=== PATIENT | female | born 1990 | race American Indian/Alaskan Native ===

== ENCOUNTER 2016-10-15 22:58 | Outpatient (CLI) | payer SELFPAY ==
[2016-10-15 23:16] VITALS: BP 131/70
[2016-10-15] MEDS ORDERED: LACTATED RINGERS 500 ML IV ONE (23:34)
== END 2016-10-15 23:45 | disposition home or self-care (01) ==
LOC: TRG 22:58
PROVIDERS: ATTEND Obstetrics & Gynecology
DX: O47.03 False labor before 37 completed weeks of gestation, third trimester (principal); Z3A.36 36 weeks gestation of pregnancy
CPT/HCPCS: 59025; J7120

== ENCOUNTER 2016-10-24 15:46 | Outpatient (CLI) | payer MEDICAID ==
[2016-10-24 16:53] VITALS: BP 127/79
--- NOTE | 2016-10-25 08:21 | Ultrasound Report ---
OB LIMITED INDICATION: Loss of fluid. Evaluate for rupture of membranes. COMPARISON: 03/07/2016 TECHNIQUE: Transabdominal grayscale ultrasound with Doppler interrogation. Gestation: [place] Position: Cephalic Amniotic Fluid: WNL (7-24 cm) SATISH = 12.9 cm Placenta: Right lateral Placental Grade: I Heart Rate: 158 BPM
== END 2016-10-24 19:30 | disposition home or self-care (01) ==
LOC: TRG 15:46
PROVIDERS: ATTEND Obstetrics & Gynecology
DX: O42.92 Full-term premature rupture of membranes, unspecified as to length of time between rupture and onset of labor (principal); Z3A.37 37 weeks gestation of pregnancy
CPT/HCPCS: 59025; 76815

== ENCOUNTER 2016-10-25 23:28 | Inpatient (IN) | payer MEDICAID ==
--- NOTE | 2016-10-26 01:46 | History and Physical Report ---
History of Present Illness Date of examination: 10/26/16 History of present illness: Patient presents to triage with c/o leaking fluid. RN report initailly no gross ROM seen. Ultrasound revealed an SATISH of 7cm different from previuos SATISH 0t 12 cm on 10/24 and RN report wet chux on bed. Patient admitted for SROM Menstrual History LMP: 02/03/2016 EDC Calculations LMP: 11/09/2016 EDC Confirmation: 11/09/2016 Past History : 4 Term Births: 1 Living Children: 1 Para: 1 Elect. Ab: 1 Spont. Ab: 1 # 1 Delivery date: 09/08/2010 Weeks Gestation: 39 Delivery type: Anesthesia type: epidural Delivery location: [facility] Sex: Female weight: 5-3 # 2 Delivery date: 05/08/2011 Delivery type: EAB # 3 Delivery date: 09/08/2015 Delivery type: SAB Past Medical History: Negative Past Medical History HPV Past Surgical History: negative Past Medical History Anesthesia Complications: negative Anemia: negative Autoimmune Disorder: negative Bleeding Disorder: negative Blood Transfusions: negative Breast Disease: negative Diabetes: negative Heart Disease: negative Hypertension: negative Hepatitis/Liver Disease: negative Kidney Disease/UTI: negative Neurologic/Epilepsy/Migraines: negative Phlebitis/Varicosities: negative Psychiatric: negative Pulmonary Disease/Asthma: negative Thyroid Disease: negative Hospitalizations: negative Surgery (Non-scalper operator): negative Abnormal PAP: positive Uterine Surgery (not C/S): negative Infection History Hx of STD: chlamydia HIV Risk Eval: low risk Hepatitis B Risk Eval: low risk Personal hx. of genital herpes: no Varicella/Chicken Pox Status: Previous Disease TB Risk: no Genetic History Congenital Heart Defect: Mom: no Dad: no Awa Disease: Mom: no Dad: no Thalassemia Mom: no Dad: no Neural Tube Defect Mom: no Dad: no Down's Syndrome Mom: no Dad: no Eladio-Sachs Mom: no Dad: no Sickle Cell Disease/Trait Mom: no Dad: no Hemophilia Mom: no Dad: no Muscular Dystrophy Mom: no Dad: no Cystic Fibrosis Mom: no Dad: no Rebecca Chorea Mom: no Dad: no Mental Retardation Mom: no Dad: no Fragile X Mom: no Dad: no Other Genetic/Chromosomal Disorder Mom: no Dad: no Child w/other defect Mom: no Dad: no Enviromental Exposures Xray Exposure: no Medication, drug, or alcohol use since LMP: no Chemical/Other Exposure: no Exposure to Cat Liter: no Current Allergies (reviewed today): No known allergies Past History Past Medical History: other (See HPI) Past Surgical History: other (See HPI) GENERAL NEUROLOGIST History: other (See HPI) Family/Genetic History: other (See HPI) Social history: other (See HPI) - Obstetrical History Expected Date of Delivery: 11/09/16 Actual Gestation: 38 Week(s) 1 Day(s) : 4 Para: 1 Hx # Term Pregnancies: 1 Number of Pregnancies: 0 Spontaneous Abortions: 0 Induced : 2 Number of Living Children: 1 Medications and Allergies Allergies Allergy/AdvReac Type Severity Reaction Status Date / Time No Known Allergies Allergy Verified 03/07/16 00:40 Home Medications Medication Instructions Recorded Confirmed Last Taken Type Doxylamine/Pyridoxine HCl 1 each PO Q6HR PRN #30 tablet. 03/07/16 Unknown Rx [Blake Gavin 10-10 mg Tablet] Vit W-Ca,Fe,FA(<1 mg) 1 each PO QDAY #30 tablet 03/07/16 Unknown Rx [ Vitamins] Ibuprofen [Motrin 800 MG tab] 800 mg PO Q8HR PRN #30 tablet 10/27/16 Unknown Rx Lidocain2.5%/Prilocai2.5% [Emla] 5 gm TP ONCE PRN #1 tube 10/27/16 Unknown Rx Review of Systems Constitutional: other (See HPI) - Vital Signs Vital signs: Vital Signs Pulse BP 84 146/82 10/25/16 23:44 10/25/16 23:44 Temp Pulse Resp BP Pulse Ox 98.9 F 84 18 137/83 10/25/16 23:48 10/25/16 23:57 10/25/16 23:48 10/25/16 23:57 - Physical Exam Breasts: Positive: deferred Cardiovascular: Regular rate Lungs: Positive: Normal air movement Cervix: Positive: other (per RN) Results Result Diagrams: 10/27/16 06:47 All other labs normal. Assessment and Plan - Patient Problems (1) Premature rupture of membranes Onset Date: ~10/26/16 Current Visit: Yes Status: Acute Qualifiers: PROM onset of labor timing: P PROM gestational age: full term Plan to address problem: Will admit/see orders/labor protocol/augment if necessary (2) 38 weeks gestation of Current Visit: Yes Status: Acute (3) Group B streptococcal carriage complicating Current Visit: Yes Status: Acute Plan to address problem: Will give prophlaxis
[2016-10-26] MEDS ORDERED: STADOL IV PRN (01:53)
[2016-10-26] MEDS ORDERED: BRETHINE IVP PRN (01:53)
[2016-10-26] MEDS ORDERED: ePHEDrine SULFATE IV PRN ×2 (01:53→13:29)
[2016-10-26] MEDS ORDERED: MINERAL OIL PO PRN (01:53)
[2016-10-26] MEDS ORDERED: BRETHINE SUB-Q PRN (01:53)
[2016-10-26] MEDS ORDERED: XYLOCAINE 2% INFILTRATI ONE (01:53)
[2016-10-26] MEDS ORDERED: PHENERGAN PO PRN (01:53)
[2016-10-26] MEDS ORDERED: PITOCin/NS 20 UNIT/1000ML DRIP 20 UNITS/1,000 ML BAG IV SCH (02:00)
[2016-10-26 02:37] LABS: Hematocrit 37.4 % (30.3-42.9); Hemoglobin 12.3 gm/dl (10.1-14.3); Mean Corpuscular HGB Conc 33 % (30-34); Mean Corpuscular Hemoglobin 30 pg (28-32); Mean Corpuscular Volume 91 fl (79-97); Platelet Count 309 K/mm3 (140-440); Red Cell Distribution Width 13.2 % (13.2-15.2); White Blood Count 11.4 K/mm3 (4.5-11.0)
[2016-10-26] MEDS: LACTATED RINGERS 1,000 ML IV SCH ×3 (03:44→11:58)
[2016-10-26] MEDS ORDERED: POLYCILLIN/NS 2 GM/100 ML 2 GM/100 ML BAG IV ONE (04:39)
[2016-10-26] MEDS: PITOCin/NS 30 UNIT/500ML 30 UNITS/500 ML BAG IV SCH ×4 (04:56→13:04)
--- NOTE | 2016-10-26 06:21 | Progress Note ---
Assessment and Plan Pt states ctx are tolerable Gross rupture noted @ 0600 SVE 1,30,-2 ISE/IUPC placed. Pit @ 12 mu Epidural when pt requests. Re-eval as needed. Subjective - Subjective Date of service: 10/26/16 (pt resting quietly) Patient reports: loss of fluid (pt states more fluid is coming out; large amt fluid clear noted on pad), movement normal Objective - Vital Signs Vital Signs: Vital Signs - 12hr 10/25/16 10/25/16 10/25/16 23:44 23:48 23:57 Temperature 98.9 F Pulse Rate 84 84 Pulse Rate [ From Monitor] Respiratory 18 Rate Blood Pressure 146/82 137/83 Blood Pressure [Left Arm] O2 Sat by Pulse Oximetry 10/26/16 10/26/16 10/26/16 02:28 02:41 02:45 Temperature 98.2 F Pulse Rate 81 82 Pulse Rate [ 88 From Monitor] Respiratory 20 Rate Blood Pressure 133/78 Blood Pressure 133/78 [Left Arm] O2 Sat by Pulse 97 97 Oximetry 10/26/16 10/26/16 10/26/16 02:50 02:55 03:00 Temperature Pulse Rate 90 77 81 Pulse Rate [ From Monitor] Respiratory Rate Blood Pressure Blood Pressure [Left Arm] O2 Sat by Pulse 97 97 96 Oximetry 10/26/16 10/26/16 10/26/16 03:05 03:10 03:15 Temperature Pulse Rate 84 83 83 Pulse Rate [ From Monitor] Respiratory Rate Blood Pressure Blood Pressure [Left Arm] O2 Sat by Pulse 97 97 96 Oximetry 10/26/16 10/26/16 10/26/16 03:20 03:25 03:30 Temperature Pulse Rate 83 85 85 Pulse Rate [ From Monitor] Respiratory Rate Blood Pressure Blood Pressure [Left Arm] O2 Sat by Pulse 96 97 97 Oximetry 10/26/16 10/26/16 10/26/16 03:35 04:53 06:04 Temperature Pulse Rate 91 H 78 98 H Pulse Rate [ From Monitor] Respiratory Rate Blood Pressure 135/76 141/71 Blood Pressure [Left Arm] O2 Sat by Pulse 97 Oximetry - Exam Breasts: deferred Cardiovascular: Regular rate Lungs: Normal air movement Abdomen: Present: normal appearance, soft. Absent: distention, tenderness Uterus: Present: normal FHR: auscultation normal, category 1 Uterine Contraction Monitor Mode: Internal Cervical Dilatation: 1 (ISE/IUPC placed) Cervical Effacement Percentage: 30 station: -2 Uterine Contraction Frequency (min): q2-3 Uterine Contraction Duration: 45 Uterine Contraction Pattern: Regular Uterine Tone Measurement Phase: Resting Uterine Contraction Intensity: Mild Extremities: edema (bilateral LE) Deep Tendon Reflex Grade: Normal +2 - Labs Labs: Abnormal Labs 10/26/16 02:16 WBC 11.4 H Laboratory Results - last 24 hr 10/26/16 10/26/16 02:16 02:16 WBC 11.4 H RBC 4.10 Hgb 12.3 Hct 37.4 MCV 91 MCH 30 MCHC 33 RDW 13.2 Plt Count 309 Blood Type B POSITIVE Antibody Screen Negative
[2016-10-26] MEDS ORDERED: SUBLIMAZE IV PRN (08:09)
[2016-10-26] MEDS: POLYCILLIN/NS 1 GM/50 ML 1 GM/50 ML BAG IV SCH ×2 (08:51→13:00)
[2016-10-26] MEDS ORDERED: ePHEDrine SULFATE ONE (11:21)
[2016-10-26] MEDS ORDERED: fentaNYL-BUPIV 2 MCG/ML-0.125% 200 MCG/100 ML BAG EPIDURAL ONE (11:50)
--- NOTE | 2016-10-26 11:59 | Anesthesia Consultation ---
Anesthesia Consult and Med Hx Date of service: 10/26/16 - Airway Anesthetic Teeth Evaluation: Good ROM Head & Neck: Adequate Mental/Hyoid Distance: Adequate Mallampati Class: Class II Intubation Access Assessment: Probably Good - Pulmonary Exam CTA: Yes - Cardiac Exam Cardiac Exam: RRR - Pre-Operative Health Status ASA Pre-Surgery Classification: ASA2 Proposed Anesthetic Plan: Epidural, Spinal - Pulmonary Hx Asthma: No COPD: No Hx Pneumonia: No - Cardiovascular System Hx Hypertension: No - Central Nervous System Hx Seizures: No Hx Psychiatric Problems: No - Endocrine Hx Renal Disease: No Hx End Stage Renal Disease: No Hx Hypothyroidism: No Hx Hyperthyroidism: No - Hematic Hx Anemia: No Hx Sickle Cell Disease: No - Other Systems Hx Alcohol Use: No - Additional Comments Anesthesia Medical History Comments: +
--- NOTE | 2016-10-26 12:17 | Progress Note ---
Assessment and Plan - Patient Problems (1) Premature rupture of membranes Onset Date: ~10/26/16 Current Visit: Yes Status: Acute Qualifiers: PROM onset of labor timing: P PROM gestational age: full term Plan to address problem: pt req epidural Bolus complete Pit 22mu SVE 4,70,-1 called Re-eval as needed Subjective - Subjective Date of service: 10/26/16 (pt sitting up for epidural; had not been examined) Patient reports: loss of fluid (pt states more fluid is coming out; large amt fluid clear noted on pad), movement normal Objective - Vital Signs Vital Signs: Vital Signs - 12hr 10/26/16 10/26/16 10/26/16 02:28 02:41 02:45 Temperature 98.2 F Pulse Rate 81 82 Pulse Rate [ 88 From Monitor] Respiratory 20 Rate Blood Pressure 133/78 Blood Pressure 133/78 [Left Arm] O2 Sat by Pulse 97 97 Oximetry 10/26/16 10/26/16 10/26/16 02:50 02:55 03:00 Temperature Pulse Rate 90 77 81 Pulse Rate [ From Monitor] Respiratory Rate Blood Pressure Blood Pressure [Left Arm] O2 Sat by Pulse 97 97 96 Oximetry 10/26/16 10/26/16 10/26/16 03:05 03:10 03:15 Temperature Pulse Rate 84 83 83 Pulse Rate [ From Monitor] Respiratory Rate Blood Pressure Blood Pressure [Left Arm] O2 Sat by Pulse 97 97 96 Oximetry 10/26/16 10/26/16 10/26/16 03:20 03:25 03:30 Temperature Pulse Rate 83 85 85 Pulse Rate [ From Monitor] Respiratory Rate Blood Pressure Blood Pressure [Left Arm] O2 Sat by Pulse 96 97 97 Oximetry 10/26/16 10/26/16 10/26/16 03:35 04:53 06:04 Temperature Pulse Rate 91 H 78 98 H Pulse Rate [ From Monitor] Respiratory Rate Blood Pressure 135/76 141/71 Blood Pressure [Left Arm] O2 Sat by Pulse 97 Oximetry 10/26/16 10/26/16 10/26/16 07:19 07:35 07:45 Temperature Pulse Rate 85 86 75 Pulse Rate [ From Monitor] Respiratory Rate Blood Pressure 127/78 126/84 131/74 Blood Pressure [Left Arm] O2 Sat by Pulse Oximetry 10/26/16 10/26/16 10/26/16 08:15 08:32 08:45 Temperature Pulse Rate 72 75 85 Pulse Rate [ From Monitor] Respiratory Rate Blood Pressure 140/72 141/63 128/62 Blood Pressure [Left Arm] O2 Sat by Pulse Oximetry 10/26/16 10/26/16 10/26/16 09:01 09:15 09:31 Temperature Pulse Rate 80 81 75 Pulse Rate [ From Monitor] Respiratory Rate Blood Pressure 117/63 114/60 125/64 Blood Pressure [Left Arm] O2 Sat by Pulse Oximetry 10/26/16 10/26/16 10/26/16 09:35 09:40 09:45 Temperature Pulse Rate 75 81 73 Pulse Rate [ From Monitor] Respiratory Rate Blood Pressure 135/73 Blood Pressure [Left Arm] O2 Sat by Pulse 97 96 96 Oximetry 10/26/16 10/26/16 10/26/16 09:50 09:52 09:55 Temperature Pulse Rate 81 80 74 Pulse Rate [ From Monitor] Respiratory Rate Blood Pressure 134/84 Blood Pressure [Left Arm] O2 Sat by Pulse 98 97 Oximetry 10/26/16 10/26/16 10/26/16 09:59 10:00 10:05 Temperature 97.5 F L Pulse Rate 71 72 84 Pulse Rate [ 79 From Monitor] Respiratory 16 Rate Blood Pressure 141/85 135/78 Blood Pressure 135/78 [Left Arm] O2 Sat by Pulse 98 98 Oximetry 10/26/16 10/26/16 10/26/16 10:06 10:08 10:10 Temperature Pulse Rate 77 83 77 Pulse Rate [ From Monitor] Respiratory Rate Blood Pressure 115/66 Blood Pressure [Left Arm] O2 Sat by Pulse 93 92 Oximetry 10/26/16 10/26/16 10/26/16 10:15 10:20 10:21 Temperature Pulse Rate 77 83 78 Pulse Rate [ From Monitor] Respiratory Rate Blood Pressure 119/72 Blood Pressure [Left Arm] O2 Sat by Pulse 96 98 Oximetry 10/26/16 10/26/16 10/26/16 10:25 10:30 10:34 Temperature Pulse Rate 74 82 79 Pulse Rate [ From Monitor] Respiratory Rate Blood Pressure Blood Pressure [Left Arm] O2 Sat by Pulse 98 97 94 Oximetry 10/26/16 10/26/16 10/26/16 10:35 10:37 10:40 Temperature Pulse Rate 83 81 84 Pulse Rate [ From Monitor] Respiratory Rate Blood Pressure 109/55 Blood Pressure [Left Arm] O2 Sat by Pulse 96 95 Oximetry 10/26/16 10/26/16 10/26/16 10:45 10:50 10:51 Temperature Pulse Rate 95 H 91 H 82 Pulse Rate [ From Monitor] Respiratory Rate Blood Pressure 110/58 Blood Pressure [Left Arm] O2 Sat by Pulse 95 95 Oximetry 10/26/16 10/26/16 10/26/16 10:55 11:00 11:05 Temperature Pulse Rate 87 85 86 Pulse Rate [ From Monitor] Respiratory Rate Blood Pressure 109/59 Blood Pressure [Left Arm] O2 Sat by Pulse 95 95 94 Oximetry 10/26/16 10/26/16 10/26/16 11:06 11:10 11:15 Temperature Pulse Rate 85 86 98 H Pulse Rate [ From Monitor] Respiratory Rate Blood Pressure Blood Pressure [Left Arm] O2 Sat by Pulse 94 95 97 Oximetry 10/26/16 10/26/16 10/26/16 11:16 11:20 11:21 Temperature Pulse Rate 96 H 97 H 88 Pulse Rate [ From Monitor] Respiratory Rate Blood Pressure 115/55 Blood Pressure [Left Arm] O2 Sat by Pulse 94 97 Oximetry 10/26/16 10/26/16 10/26/16 11:25 11:30 11:35 Temperature Pulse Rate 98 H 96 H 87 Pulse Rate [ From Monitor] Respiratory Rate Blood Pressure 119/56 Blood Pressure [Left Arm] O2 Sat by Pulse 97 96 96 Oximetry - Exam Breasts: deferred Cardiovascular: Regular rate Lungs: Normal air movement Abdomen: Present: normal appearance, soft. Absent: distention, tenderness Uterus: Present: normal FHR: auscultation normal, category 1 Uterine Contraction Monitor Mode: Internal Cervical Dilatation: 4 Cervical Effacement Percentage: 70 station: -1 Uterine Contraction Pattern: Regular Uterine Contraction Intensity: Moderate Extremities: normal Deep Tendon Reflex Grade: Normal +2 - Labs Labs: Abnormal Labs 10/26/16 02:16 WBC 11.4 H Laboratory Results - last 24 hr 10/26/16 10/26/16 02:16 02:16 WBC 11.4 H RBC 4.10 Hgb 12.3 Hct 37.4 MCV 91 MCH 30 MCHC 33 RDW 13.2 Plt Count 309 Blood Type B POSITIVE Antibody Screen Negative
[2016-10-26] MEDS ORDERED: NARCAN 2 MG/2 ML IV PRN (13:29)
[2016-10-26] MEDS ORDERED: fentaNYL-BUPIV 2 MCG/ML-0.125% 200 MCG/100 ML BAG EPIDURAL SCH (14:00)
[2016-10-26] MEDS ORDERED: TUCKS PAD TP PRN (15:02)
[2016-10-26] MEDS ORDERED: DERMOPLAST TP PRN (15:02)
[2016-10-26] MEDS ORDERED: ZOFRAN IV PRN (15:02)
[2016-10-26] MEDS ORDERED: TYLENOL PO PRN (15:02)
[2016-10-26] MEDS ORDERED: DULCOLAX PR PRN (15:02)
[2016-10-26] MEDS ORDERED: BENADRYL PO PRN (15:02)
[2016-10-26] MEDS ORDERED: LANSINOH TP PRN (15:02)
[2016-10-26] MEDS ORDERED: MILK OF MAGNESIA PO PRN (15:02)
[2016-10-26] MEDS ORDERED: NORCO 5/325 PO PRN (15:02)
--- NOTE | 2016-10-26 15:09 | Procedure Note ---
OB Delivery Note - Delivery Date of Delivery: 10/26/16 Director Of Exhibit Development: DAPHNEY QUINTANA Estimated blood loss: 300cc - Vaginal Delivery presentation: vertex Delivery position: OA Intrapartum events: none Delivery induction: none Delivery augmentation: pitocin Delivery monitor: internal FHT, internal uterine Route of delivery: Delivery placenta: spontaneous Delivery cord: nuchal cord, 3 umbilical vessels Episiotomy: none Delivery laceration: none Anesthesia: epidural Delivery comments: live born male over intact perineum CAN X 1 reduced. Baby to mom's abdomen skin to skin Cord blood obt Placenta and membrane del complete and intact, 3 vessel cord. Pit IVFs. 8/9, EBL 300, Wgt 5-10 Mom and baby remain LDR stable - Infant A at 1 minute: 8 at 5 minutes: 9 Infant Gender: Male (wgt 5-10)
[2016-10-26] MEDS ORDERED: SODIUM CHLORIDE FLUSH SYRINGE 10 ML IV SCH (16:00)
[2016-10-26] MEDS: MOTRIN PO SCH (17:40)
[2016-10-27] MEDS: MOTRIN PO SCH ×3 (05:38→14:02)
[2016-10-27] MEDS ORDERED: BOOSTRIX IM ONE (06:00)
[2016-10-27 07:49] LABS: Hematocrit 35.5 % (30.3-42.9); Hemoglobin 11.7 gm/dl (10.1-14.3)
--- NOTE | 2016-10-27 08:25 | Progress Note ---
Assessment and Plan Patient resting w/o complaints. lochia scant, VSSAF, H&H stable 11.7/35.5. Patient desires d/c home today. Plan for d/c once is cleared for discharge. - Patient Problems (1) Spontaneous vaginal delivery Current Visit: Yes Status: Acute Subjective - Subjective Date of service: 10/27/16 Principal diagnosis: day #1 s/p Patient reports: appetite normal, voiding normally, pain well controlled, ambulating normally, no dizzy ambulation, no nauseated [place]: doing well, nursing well Objective - Vital Signs Latest vital signs: Vital Signs Temp Pulse Pulse Pulse Resp BP BP 10/27/16 00:00 98.6 F 88 22 132/79 10/26/16 16:30 98.7 F 87 18 135/75 10/26/16 14:34 121 H 10/26/16 14:32 95 H 147/84 10/26/16 14:29 102 H 10/26/16 14:24 89 10/26/16 14:19 99 H 10/26/16 14:17 82 119/74 10/26/16 14:14 98 H 10/26/16 14:09 79 10/26/16 14:04 92 H 10/26/16 14:02 84 130/83 10/26/16 13:59 91 H 10/26/16 13:54 89 10/26/16 13:49 88 10/26/16 13:48 87 10/26/16 13:46 83 124/80 10/26/16 13:44 77 10/26/16 13:39 73 10/26/16 13:34 87 10/26/16 13:31 76 127/74 10/26/16 13:29 85 10/26/16 13:24 86 10/26/16 13:19 93 H 10/26/16 13:17 89 133/80 10/26/16 13:14 91 H 10/26/16 13:09 83 10/26/16 13:04 94 H 10/26/16 13:03 80 129/76 10/26/16 13:01 76 127/78 10/26/16 12:59 81 10/26/16 12:54 82 16 122/77 10/26/16 12:49 79 10/26/16 12:46 86 122/77 10/26/16 12:44 84 120/76 10/26/16 12:42 132/72 10/26/16 12:40 98 H 125/73 10/26/16 12:39 89 10/26/16 12:38 83 118/66 10/26/16 12:36 81 125/64 10/26/16 12:34 95 H 119/62 10/26/16 12:32 81 124/66 10/26/16 12:30 108 H 126/67 10/26/16 12:29 93 H 10/26/16 12:28 85 129/72 10/26/16 12:26 83 128/73 10/26/16 12:24 79 135/66 10/26/16 12:22 100 H 121/68 10/26/16 12:19 103 H 126/74 10/26/16 12:14 81 129/74 10/26/16 11:35 87 119/56 10/26/16 11:30 96 H 10/26/16 11:25 98 H 10/26/16 11:21 88 115/55 10/26/16 11:20 97 H 10/26/16 11:16 96 H 10/26/16 11:15 98 H 10/26/16 11:10 86 10/26/16 11:06 85 10/26/16 11:05 86 109/59 10/26/16 11:00 85 10/26/16 10:55 87 10/26/16 10:51 82 110/58 10/26/16 10:50 91 H 10/26/16 10:45 95 H 10/26/16 10:40 84 10/26/16 10:37 81 109/55 10/26/16 10:35 83 10/26/16 10:34 79 10/26/16 10:30 82 10/26/16 10:25 74 10/26/16 10:21 78 119/72 10/26/16 10:20 83 10/26/16 10:15 77 10/26/16 10:10 77 10/26/16 10:08 83 10/26/16 10:06 77 115/66 10/26/16 10:05 84 10/26/16 10:00 97.5 F L 72 79 16 135/78 135/78 10/26/16 09:59 71 141/85 10/26/16 09:55 74 10/26/16 09:52 80 134/84 10/26/16 09:50 81 10/26/16 09:45 73 10/26/16 09:40 81 10/26/16 09:35 75 135/73 10/26/16 09:31 75 125/64 10/26/16 09:15 81 114/60 10/26/16 09:01 80 117/63 10/26/16 08:45 85 128/62 10/26/16 08:32 75 141/63 Pulse Ox 10/27/16 00:00 10/26/16 16:30 10/26/16 14:34 97 10/26/16 14:32 10/26/16 14:29 100 10/26/16 14:24 100 10/26/16 14:19 99 10/26/16 14:17 10/26/16 14:14 97 10/26/16 14:09 98 10/26/16 14:04 98 10/26/16 14:02 10/26/16 13:59 100 10/26/16 13:54 97 10/26/16 13:49 99 10/26/16 13:48 83 L 10/26/16 13:46 10/26/16 13:44 100 10/26/16 13:39 99 10/26/16 13:34 98 10/26/16 13:31 10/26/16 13:29 97 10/26/16 13:24 97 10/26/16 13:19 98 10/26/16 13:17 10/26/16 13:14 99 10/26/16 13:09 100 10/26/16 13:04 100 10/26/16 13:03 10/26/16 13:01 10/26/16 12:59 98 10/26/16 12:54 97 10/26/16 12:49 98 10/26/16 12:46 10/26/16 12:44 99 10/26/16 12:42 10/26/16 12:40 10/26/16 12:39 98 10/26/16 12:38 10/26/16 12:36 10/26/16 12:34 97 10/26/16 12:32 10/26/16 12:30 10/26/16 12:29 97 10/26/16 12:28 10/26/16 12:26 10/26/16 12:24 97 10/26/16 12:22 10/26/16 12:19 96 10/26/16 12:14 97 10/26/16 11:35 96 10/26/16 11:30 96 10/26/16 11:25 97 10/26/16 11:21 10/26/16 11:20 97 10/26/16 11:16 94 10/26/16 11:15 97 10/26/16 11:10 95 10/26/16 11:06 94 10/26/16 11:05 94 10/26/16 11:00 95 10/26/16 10:55 95 10/26/16 10:51 10/26/16 10:50 95 10/26/16 10:45 95 10/26/16 10:40 95 10/26/16 10:37 10/26/16 10:35 96 10/26/16 10:34 94 10/26/16 10:30 97 10/26/16 10:25 98 10/26/16 10:21 10/26/16 10:20 98 10/26/16 10:15 96 10/26/16 10:10 92 10/26/16 10:08 93 10/26/16 10:06 10/26/16 10:05 98 10/26/16 10:00 98 10/26/16 09:59 10/26/16 09:55 97 10/26/16 09:52 10/26/16 09:50 98 10/26/16 09:45 96 10/26/16 09:40 96 10/26/16 09:35 97 10/26/16 09:31 10/26/16 09:15 10/26/16 09:01 10/26/16 08:45 10/26/16 08:32 Intake and Output 10/26/16 10/27/16 10/27/16 22:59 06:59 14:59 Intake Total 610 500 Output Total 500 Balance 110 500 Intake: IV 250 PITOCin/NS 20 UNIT/1000ML 250 DRIP 20 units In 1,000 ml @ 125 mls/hr IV DIRECT GUY Rx#:[id number] Oral 360 Intake, Free Water 500 Output: Urine 500 Void 500 Other: Total, Intake Amount 360 Total, Output Amount 500 Voiding Method Toilet Estimated Blood Loss 300 - Exam Breasts: Present: normal Cardiovascular: Present: Regular rate Lungs: Present: Clear to auscultation, Normal air movement Abdomen: Present: normal appearance, soft, normal bowel sounds Vulva: both: normal Uterus: Present: normal, firm, fundal height at umbilicus Extremities: Present: normal
--- NOTE | 2016-10-27 10:19 | Discharge Summary ---
Providers - Providers Date of Admission: 10/26/16 01:55 Date of discharge: 10/27/16 (patient requests d/c today) Attending physician: GÓMEZ KEBEDE Primary care physician: GÓMEZ KEBEDE Hospitalization Reason for admission: active labor Delivery: Episiotomy: none Laceration: none Other procedures: none complications: none Discharge diagnosis: IUP at term delivered baby: male Hospital course: uncomplicated vaginal delivery Disposition: DISCHARGED TO HOME OR SELFCARE - Discharge Diagnoses (1) Spontaneous vaginal delivery Status: Acute Plan - Discharge Medications Prescriptions: Ibuprofen [Motrin 800 MG tab] 800 mg PO Q8HR PRN #30 tablet PRN Reason: Pain Lidocain2.5%/Prilocai2.5% [Emla] 5 gm TP ONCE PRN #1 tube PRN Reason: Pain - Provider Discharge Summary Activity: routine, no sex for 6 weeks, no heavy lifting 4 weeks, no strenuous exercise Diet: routine Instructions: routine Additional instructions: [] Smoking cessation referral if applicable(refer to patient education folder for contact #) [] Refer to [facility] Booklet Call your doctor immediately for: * Fever > 100.5 * Heavy vaginal bleeding ( >1 pad per hour) * Severe persistent headache * Shortness of breath * Reddened, hot, painful area to leg or breast * Drainage or odor from incision. * Keep incision clean and dry at all times and follow doctor's instructions regarding bathing/showering - Follow up plan Follow up: GÓMEZ KEBEDE MD [Primary Care Provider] - 7 Days (Congratulations! Please call [phone] to schedule your son's circumcision in 1 week and your visit in 4 weeks. Bring EMLA cream to your son's appointment and await further instructions. Call for any questions or concerns. )
--- NOTE | 2016-10-27 10:55 | Progress Note ---
Subjective Date of service: 10/27/16 Principal diagnosis: day #1 s/p Interval history: 1st day after normal vaginal delivery Patient is comfortable. Pain is very well under control. Ambulated well. No residual neurological deficit. No nausea or vomiting. No anesthesia complications Objective - Constitutional Vitals: Vital Signs - 12hr 10/27/16 10/27/16 00:00 08:40 Temperature 98.6 F 98.3 F Pulse Rate [ 88 80 Left] Respiratory 22 18 Rate Blood Pressure 132/79 124/78 [Left Arm] - Labs CBC & Chem 7: 10/27/16 06:47
[2016-10-27] MEDS ORDERED: M-M-R II VACCINE SUB-Q ONE (15:02)
[2016-10-27 17:24] VITALS: BP 118/64
--- NOTE | 2016-10-28 12:55 | Ultrasound Report ---
FINAL REPORT PROCEDURE: OB US LIMITED FETUS(S) TECHNIQUE: Real-time limited sonographic examination was performed for evaluation of fluid volume for each fetus with image documentation (1 or more fetuses). CPT 14243 HISTORY: SATISH COMPARISON: No prior studies are available for comparison. FINDINGS: There is a single fetus in a vertex presentation. heart rate 149 beats per minute. The 4 quadrant amniotic fluid volume index measures 7.1 centimeters IMPRESSION: Single fetus vertex presentation. Amniotic fluid volume index is 7.1 centimeters
== END 2016-10-27 15:50 | disposition home or self-care (01) | DRG 775 ==
LOC: TRG 23:28 → LD 10-26 01:55 → OB 10-26 16:47
PROVIDERS: ADMIT Obstetrics & Gynecology; ATTEND Obstetrics & Gynecology
PROC: 10E0XZZ Delivery of Products of Conception, External Approach (ICD-10-PCS; principal; 2016-10-26)
PROC: 3E0S3CZ (ICD-10-PCS; 2016-10-26)
PROC: 00HU33Z Insertion of Infusion Device into Spinal Canal, Percutaneous Approach (ICD-10-PCS; 2016-10-26)
DX: O42.92 Full-term premature rupture of membranes, unspecified as to length of time between rupture and onset of labor (principal); O69.81X0 Labor and delivery complicated by cord around neck, without compression, not applicable or unspecified; O99.824 Streptococcus B carrier state complicating childbirth; Z3A.38 38 weeks gestation of pregnancy; Z37.0 Single live birth
CPT/HCPCS: 36415; 76815; 85014; 85018; 85027; 86850; 86900; 86901; 90471; 90715; 99211; G0463; J0290; J0595; J2590; J3010; J7120

== ENCOUNTER 2018-10-25 17:11 | Outpatient (CLI) | payer MEDICAID ==
[2018-10-25] MEDS ORDERED: LACTATED RINGERS 500 ML IV ONE (18:28)
[2018-10-25 18:35] LABS: Bacteria,Urine 4+ /HPF (Negative); Bilirubin,Urine NEG (Negative); Blood,Urine NEG (Negative); Color,Urine Yellow (Yellow); Mucus,Urine FEW /HPF; Protein,Urine <15 mg/dL mg/dL (Negative); Urobilinogen,Urine < 2.0 mg/dL (<2.0)
[2018-10-25 20:16] VITALS: BP 115/69
--- NOTE | 2018-10-25 21:02 | Ultrasound Report ---
PROCEDURE: Ultrasound biophysical profile without nonstress test. TECHNIQUE: Sonographic evaluation for breathing, movement, tone, and amniotic flui d volume was performed. HISTORY: baby measuring small COMPARISONS: None. FINDINGS: FETUS Amniotic fluid volume 2 . breathin . movement: 2 . tone: 2 . Score: 8 of 8 . IMPRESSION: Normal biophysical profile . This document is electronically signed by Jake Lou MD., October 25 2018 09:00:53 PM ET
--- NOTE | 2018-10-25 21:09 | Ultrasound Report ---
PROCEDURE: Follow-up obstetrical ultrasound. TECHNIQUE: Real-time sonography performed for focused follow-up or re-evaluation of each size/ growth parameters and amniotic fluid or re-evaluation of suspected or confirmed abnormality on prior imaging. HISTORY: baby measuring small COMPARISONS: None. FINDINGS: There is a single intrauterine fetus in cephalic presentation. Cardiac activity is documented at 152 bpm. The cervix measures 4.3 cm in length. The amniotic fluid volume appears normal. The amniotic flu id index measures 11.9 cm. The placenta is posterior and fundal in location, grade 2. There are no si gns of placenta previa. The measured parameters are as follows: Biparietal diameter 8.0 cm, hea d circumference 30.4 cm, abdominal circumference 30.0 cm, femur length 6.7 cm. The calculated menstru al age is 33 weeks 5 days. This is behind the menstrual age based on the LMP which would be 37 weeks 1 day. The estimated date of confinement is 12/08/2018. The estimated weight is 2312 g. IMPRESSION: Discrepancy between menstrual age by ultrasound and LMP. Viable fetus at 33 weeks 5 days by govind goodwin. This document is electronically signed by Jake Lou MD., October 25 2018 09:07:30 PM ET
--- NOTE | 2018-10-25 21:30 | Ultrasound Report ---
PROCEDURE: Umbilical cord duplex arterial ultrasound. TECHNIQUE: Routine imaging and duplex arterial evaluation of the umbilical cord was performed. HISTORY: Assess well-being, small for gestational age. COMPARISONS: None. FINDINGS: The average of three S/D ratio measurements was 2.11. The waveform appeared normal and was persistent . The average of 3 resistive index measurements was 0.52. The waveform was normal and persistent. IMPRESSION: Normal umbilical cord Doppler values. This document is electronically signed by Jake Lou MD., October 25 2018 09:28:03 PM ET
== END 2018-10-25 21:35 | disposition home or self-care (01) ==
LOC: TRG 17:11
PROVIDERS: ATTEND Obstetrics & Gynecology
DX: O47.03 False labor before 37 completed weeks of gestation, third trimester (principal); Z3A.37 37 weeks gestation of pregnancy
CPT/HCPCS: 59025; 76816; 76819; 76820; 81001

== ENCOUNTER 2018-11-06 01:13 | Outpatient (CLI) | payer MEDICAID ==
[2018-11-06] MEDS ORDERED: LACTATED RINGERS 1,000 ML ONE (02:59)
[2018-11-06] MEDS ORDERED: LACTATED RINGERS 1,000 ML IV ONE (03:09)
[2018-11-06 05:05] VITALS: BP 120/70
== END 2018-11-06 05:20 | disposition home or self-care (01) ==
LOC: TRG 01:13
PROVIDERS: ATTEND Obstetrics & Gynecology
DX: O42.92 Full-term premature rupture of membranes, unspecified as to length of time between rupture and onset of labor (principal); Z3A.38 38 weeks gestation of pregnancy
CPT/HCPCS: 99212; G0463; J7120

== ENCOUNTER 2018-11-09 18:22 | Inpatient (IN) | payer MEDICAID ==
[2018-11-09] MEDS: LACTATED RINGERS 1,000 ML IV SCH (19:00)
[2018-11-09] MEDS ORDERED: ZOFRAN IV PRN (21:00)
[2018-11-09] MEDS ORDERED: BRETHINE IVP PRN (21:00)
[2018-11-09] MEDS ORDERED: STADOL IV PRN (21:00)
[2018-11-09] MEDS ORDERED: NARCAN 0.4 MG/1 ML IV PRN (21:00)
[2018-11-09] MEDS ORDERED: BRETHINE SUB-Q PRN (21:00)
[2018-11-09] MEDS ORDERED: PITOCin/NS 20 UNIT/1000ML DRIP 20 UNITS/1,000 ML BAG IV SCH (21:00)
[2018-11-09] MEDS ORDERED: PITOCin/NS 30 UNIT/500ML 30 UNITS/500 ML BAG IV SCH ×2 (21:00)
[2018-11-09] MEDS ORDERED: XYLOCAINE 2% INFILTRATI ONE (21:00)
[2018-11-09] MEDS ORDERED: MINERAL OIL PO PRN (21:00)
[2018-11-09] MEDS ORDERED: PHENERGAN PO PRN (21:00)
--- NOTE | 2018-11-09 21:08 | History and Physical Report ---
History of Present Illness Date of examination: 11/09/18 Date of admission: 11/09/18 18:22 Chief complaint: spontaneous rupture of membranes History of present illness: This is a 28 yo G 5 P2 at 39+2 weeks here for srom clear at 1720 . She is a patient of [facility]. Past History Past Medical History: no pertinent history Past Surgical History: no surgical history Family/Genetic History: none Social history: single. denies: smoking, alcohol abuse, prescription drug abuse - Obstetrical History Expected Date of Delivery: 11/14/18 Actual Gestation: 39 Week(s) 3 Day(s) : 5 Para: 2 Hx # Term Pregnancies: 2 Number of Pregnancies: 0 Spontaneous Abortions: 1 Induced : 1 Number of Living Children: 2 Medications and Allergies Allergies Allergy/AdvReac Type Severity Reaction Status Date / Time No Known Allergies Allergy Verified 03/07/16 00:40 Home Medications Medication Instructions Recorded Confirmed Last Taken Type Fluconazole [Diflucan TAB] 11/09/18 Unknown History valACYclovir [Valtrex] 11/09/18 Unknown History Review of Systems All systems: negative Genitourinary: leakage of fluid - Vital Signs Vital signs: Vital Signs Pulse BP 77 130/72 11/09/18 19:10 11/09/18 19:10 Temp Pulse Resp BP Pulse Ox 80 132/75 11/09/18 20:40 11/09/18 20:40 - Physical Exam Breasts: Positive: normal Cardiovascular: Regular rate, Normal S1 Lungs: Positive: Clear to auscultation, Normal air movement Abdomen: Positive: normal appearance, soft, normal bowel sounds. Negative: distention, tenderness, guarding Genitourinary (Female): Positive: normal external genitalia, normal perenium Vagina: Positive: normal moisture Uterus: Positive: normal size, normal contour Anus/Rectum: Positive: normal perianal skin Extremities: Positive: normal Deep Tendon Reflex Grade: Normal +2 - Obstetrical FHR: category 1 Uterine Contraction Monitor Mode: External Cervical Dilatation: 2 Cervical Effacement Percentage: 50 station: -4 Uterine Contraction Pattern: Irregular Uterine Tone Measurement Phase: Contraction Uterine Contraction Intensity: Mild Results Result Diagrams: 11/09/18 18:45 All other labs normal. Assessment and Plan A/P IUP srom clear low dose pitocin expect vaginal delivery
[2018-11-09 21:19] LABS: Hematocrit 39.6 % (30.3-42.9); Hemoglobin 13.4 gm/dl (10.1-14.3); Mean Corpuscular HGB Conc 34 % (30-34); Mean Corpuscular Volume 92 fl (79-97); Platelet Count 359 K/mm3 (140-440); Red Blood Count 4.29 M/mm3 (3.65-5.03); Red Cell Distribution Width 17.8 % (13.2-15.2)
[2018-11-10] MEDS: SUBLIMAZE IV PRN ×2 (00:52→03:01)
--- NOTE | 2018-11-10 02:34 | Event Note ---
Date: 11/10/18 patient resting comfortably in bed vss nst cat 1 mars q5min continue pitocin sve /3 continue pitocin for augmentation
[2018-11-10] MEDS: LACTATED RINGERS 1,000 ML IV SCH ×3 (02:44→06:41)
--- NOTE | 2018-11-10 04:40 | Anesthesia Consultation ---
Anesthesia Consult and Med Hx Date of service: 11/10/18 - Airway ROM Head & Neck: Adequate Mental/Hyoid Distance: Adequate Mallampati Class: Class I Intubation Access Assessment: Good - Pulmonary Exam CTA: Yes - Cardiac Exam Cardiac Exam: RRR - Pre-Operative Health Status ASA Pre-Surgery Classification: ASA2 Proposed Anesthetic Plan: Epidural - Pulmonary Hx Smoking: No Hx Asthma: No Hx Respiratory Symptoms: No COPD: No Hx Pneumonia: No - Cardiovascular System Hx Hypertension: No Hx Coronary Artery Disease: No Hx Heart Attack/AMI: No Hx Percutaneous Transluminal Coronary Angioplasty (PTCA): No - Central Nervous System Hx Neuromuscular Disorder: No Hx Seizures: No CVA: No Hx Back Pain: No Hx Psychiatric Problems: No - Gastrointestinal Hx Ulcer: No Hx Gastroesophageal Reflux Disease: No - Endocrine Hx Renal Disease: No Hx End Stage Renal Disease: No Hx Cirrhosis: No Hx Liver Disease: No Hx Insulin Dependent Diabetes: No Hx Non-Insulin Dependent Diabetes: No Hx Thyroid Disease: No Hx Hypothyroidism: No Hx Hyperthyroidism: No - Hematic Hx Anemia: No Hx Sickle Cell Disease: No - Other Systems Hx Alcohol Use: No Hx Substance Use: No Hx Cancer: No Hx Obesity: No
[2018-11-10] MEDS ORDERED: NARCAN 2 MG/2 ML IV PRN (04:41)
[2018-11-10] MEDS ORDERED: XYLOCAINE 2%/ EPI 1:200,000 INFILTRATI ONE (04:45)
[2018-11-10] MEDS ORDERED: fentaNYL-BUPIV 2 MCG/ML-0.125% 200 MCG/100 ML BAG EPIDURAL SCH (05:00)
--- NOTE | 2018-11-10 07:35 | Event Note ---
Date: 11/10/18 Pt comfortable with epidural. Category 2 tracing. SVE: /-3 with forebag. Rupture of forebag- clear. Cervix progressed to 8 cm. Continue pitocin augmentation.
--- NOTE | 2018-11-10 08:45 | Procedure Note ---
OB Delivery Note - Delivery Date of Delivery: 11/10/18 Surgeon: COREY KAY Estimated blood loss: 200cc - Vaginal Delivery presentation: vertex Delivery position: OA Intrapartum events: PROM->1hr before delivery Delivery induction: oxytocin Delivery augmentation: pitocin Delivery monitor: external FHT, external uterine Route of delivery: Delivery placenta: spontaneous Delivery cord: 3 umbilical vessels Episiotomy: none Delivery laceration: none Anesthesia: epidural - Infant A at 1 minute: 8 at 5 minutes: 9 Infant Gender: Female (2761g ( 6lb 1.3 oz) @ 0831 am)
--- NOTE | 2018-11-10 11:18 | Post Anesthesia Evaluation ---
- Post Anesthesia Evaluation Patient Participated: Yes Airway Patent: Yes Stable Respiratory Function: Yes Nausea/Vomiting: No Temp > 96.8F: Yes Pain Manageable: Yes Adequeate Hydration: Yes Anesthesia Complications: No Block Receding Appropriately: Yes Patient on Ventilator: No
[2018-11-10] MEDS ORDERED: LANSINOH TP PRN ×2 (11:25)
[2018-11-10] MEDS ORDERED: DULCOLAX PR PRN (11:25)
[2018-11-10] MEDS ORDERED: ZOFRAN IV PRN (11:25)
[2018-11-10] MEDS ORDERED: SODIUM CHLORIDE FLUSH SYRINGE 10 ML IV NR (11:25)
[2018-11-10] MEDS ORDERED: TUCKS PAD TP PRN (11:25)
[2018-11-10] MEDS ORDERED: PITOCin/NS 20 UNIT/1000ML DRIP 20 UNITS/1,000 ML BAG IV SCH (11:25)
[2018-11-10] MEDS ORDERED: NORCO 5/325 PO PRN (11:25)
[2018-11-10] MEDS ORDERED: PHENERGAN PO PRN (11:25)
[2018-11-10] MEDS ORDERED: DERMOPLAST TP PRN (11:25)
[2018-11-10] MEDS ORDERED: BENADRYL PO PRN (11:25)
[2018-11-10] MEDS ORDERED: TYLENOL PO PRN (11:25)
[2018-11-10] MEDS ORDERED: MILK OF MAGNESIA PO PRN (11:25)
[2018-11-10] MEDS ORDERED: PHENERGAN PR PRN (11:25)
[2018-11-10] MEDS: IBUPROFEN PO SCH ×2 (14:45→21:26)
[2018-11-10] MEDS: FEOSOL PO SCH ×2 (14:45→21:26)
[2018-11-10 20:50] LABS: Hematocrit 36.3 % (30.3-42.9); Hemoglobin 12.3 gm/dl (10.1-14.3)
[2018-11-11] MEDS: IBUPROFEN PO SCH ×2 (03:53→10:18)
[2018-11-11] MEDS ORDERED: BOOSTRIX IM ONE (08:46)
[2018-11-11] MEDS ORDERED: M-M-R II VACCINE SUB-Q ONE (08:46)
[2018-11-11] MEDS: FEOSOL PO SCH (10:18)
--- NOTE | 2018-11-11 12:00 | Progress Note ---
Assessment and Plan A: PPD#1 s/p at term Pt request for discharge P: Discharge home today with follow up in 4-[address] Song Subjective - Subjective Date of service: 11/11/18 Principal diagnosis: s/p at term Interval history: No overnight events. Pt would like to go home. Patient reports: appetite normal, voiding normally, pain well controlled, ambulating normally, no dizzy ambulation : doing well Objective - Vital Signs Latest vital signs: Vital Signs Temp Pulse Resp BP Pulse Ox 11/11/18 08:19 98.1 F 76 20 114/69 98 11/11/18 01:39 98.7 F 80 20 133/89 97 11/10/18 22:10 98.7 F 85 20 118/83 98 11/10/18 15:21 97.2 F L 76 16 117/80 96 11/10/18 14:45 14 Intake and Output 11/10/18 11/11/18 11/11/18 22:59 06:59 14:59 Intake Total 2600 240 Balance 2600 240 Intake: Oral 2600 240 Other: Total, Intake Amount 240 240 Voiding Method Toilet # Voids 1 Void 1 1 - Exam Breasts: Present: deferred Cardiovascular: Present: Regular rate Lungs: Present: Clear to auscultation Abdomen: Present: soft Uterus: Present: fundal height at umbilicus Extremities: Present: normal
--- NOTE | 2018-11-11 12:02 | Discharge Summary ---
Providers - Providers Date of Admission: 11/09/18 18:22 Date of discharge: 11/11/18 Attending physician: FILIPE SONG MD Primary care physician: FILIPE SONG MD Hospitalization Reason for admission: rupture of membranes Delivery: Procedure details: Please see delivery note. Episiotomy: none Laceration: none complications: none Discharge diagnosis: IUP at term delivered baby: female Hospital course: The patient was admitted with ruptured membranes and ultimately underwent a spontaneous vaginal delivery which she tolerated well. Her course uncomplicated and she was discharge criteria on postoperative day #1. She'll follow up in the office of Dr. Song in 4 weeks. Condition at discharge: Stable Disposition: DC-01 TO HOME OR SELFCARE - Discharge Diagnoses (1) Obesity Status: Acute Qualifiers: Body mass index: BMI 30.0-30.9 (2) Term of female Status: Acute (3) Premature rupture of membranes Status: Acute Qualifiers: PROM gestational age: full term (4) Spontaneous vaginal delivery Status: Acute Plan - Discharge Medications Prescriptions: Ibuprofen 800 mg PO Q8H PRN #30 tablet PRN Reason: Pain, Moderate (4-6) HYDROcodone/APAP 5-325 [[place] 5/325] 1 each PO Q6HR PRN #20 tablet PRN Reason: Pain - Provider Discharge Summary Activity: routine, no sex for 6 weeks, no heavy lifting 4 weeks, no strenuous exercise Diet: routine Instructions: routine Additional instructions: [] Smoking cessation referral if applicable(refer to patient education folder for contact #) [] Refer to [facility] Booklet Call your doctor immediately for: * Fever > 100.5 * Heavy vaginal bleeding ( >1 pad per hour) * Severe persistent headache * Shortness of breath * Reddened, hot, painful area to leg or breast * Drainage or odor from incision. * Keep incision clean and dry at all times and follow doctor's instructions regarding bathing/showering - Follow up plan Follow up: FILIPE SONG MD [Primary Care Provider] - 12/11/18 (Please call to schedule appt ) Forms: Discharge Signature Page
[2018-11-11] MEDS ORDERED: IBUPROFEN PO SCH (12:13)
[2018-11-11 13:19] VITALS: BP 138/83
== END 2018-11-11 13:50 | disposition home or self-care (01) | DRG 775 ==
LOC: LD 18:22 → OB 11-10 11:21
PROVIDERS: ADMIT Obstetrics & Gynecology; ATTEND Obstetrics & Gynecology
PROC: 3E033VJ Introduction of Other Hormone into Peripheral Vein, Percutaneous Approach (ICD-10-PCS; 2018-11-09)
PROC: 10E0XZZ Delivery of Products of Conception, External Approach (ICD-10-PCS; principal; 2018-11-10)
PROC: 3E0R3BZ Introduction of Anesthetic Agent into Spinal Canal, Percutaneous Approach (ICD-10-PCS; 2018-11-10)
PROC: 00HU33Z Insertion of Infusion Device into Spinal Canal, Percutaneous Approach (ICD-10-PCS; 2018-11-10)
PROC: 3E0234Z Introduction of Serum, Toxoid and Vaccine into Muscle, Percutaneous Approach (ICD-10-PCS; 2018-11-11)
DX: O42.02 Full-term premature rupture of membranes, onset of labor within 24 hours of rupture (principal); Z3A.39 39 weeks gestation of pregnancy; Z37.0 Single live birth; Z23 Encounter for immunization
CPT/HCPCS: 36415; 85014; 85018; 85027; 86592; 86850; 86900; 86901; 96360; 96361; 99212; G0378; G0463; J2590; J3010; J7120